=== PATIENT | male | born 1995 | race Caucasian/White ===

== ENCOUNTER 2019-12-07 17:35 | Emergency (ER) | payer OTHER ==
[~2019-12-07] VITALS: Ht 188 cm; Wt 104.5 kg
[2019-12-07] MEDS ORDERED: HYDROcodone/APAP 5/325MG 1 TAB TABLET PO ONE (18:45)
[2019-12-07] MEDS ORDERED: ORPHENADRINE CITRATE 60 MG/2 ML VIAL. IM ONE (18:45)
[2019-12-07 18:54] LABS: BILIRUBIN,URINE NEGATIVE (NEG); CLARITY,URINE CLEAR; COLOR,URINE YELLOW; NITRITE,URINE NEGATIVE (NEG); PH,URINE 7.5 (<5.0-8.0); PROTEIN,URINE NEGATIVE (NEG-TRACE); UROBILINOGEN,URINE 0.2 mg/dL (0.2 mg/dL)
[2019-12-07 18:59] LABS: BACTERIA,URINE 0 /HPF (0-FEW); RBC,URINE 0 /HPF (0-2); WBC,URINE 0 /HPF (0-4)
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
[2019-12-07 19:00] VITALS: BP 119/56
[2019-12-07 19:03] LABS: AMPHETAMINE/METHAMPHETAMINE NEG (NEG); BARBITURATES NEG (NEG); BENZODIAZEPINES NEG (NEG); CANNABINOIDS NEG (NEG); COCAINE NEG (NEG); METHADONE NEG (NEG); OPIATES NEG (NEG); PHENCYCLIDINE NEG (NEG)
[2019-12-07] MEDS ORDERED: HYDR-3164 PO (19:35)
[2019-12-07] MEDS ORDERED: ORPH100T PO (19:35)
--- NOTE | 2019-12-07 19:39 | RAD ---
Exam: Thoracic spine 2 views INDICATION: Pain TECHNIQUE: Frontal and lateral views of the thoracic spine Comparisons: None FINDINGS: Vertebral body heights and alignment are well-maintained. No significant spondylotic change identified within the thoracic spine. Visualized paraspinal soft tissues are unremarkable. IMPRESSION: Unremarkable thoracic spine radiographs. Electronically signed by: Isac Hernandez MD (12/07/2019 7:36 PM) [id number]
== END 2019-12-07 20:35 | disposition home or self-care (01) ==
LOC: ER 17:35
DX: S39.82XA Other specified injuries of lower back, initial encounter (principal); Y08.89XA Assault by other specified means, initial encounter; Y93.89 Activity, other specified; Y92.89 Other specified places as the place of occurrence of the external cause; Y99.8 Other external cause status
CPT/HCPCS: 72072; 80307; 81001; 96372; 99284; J2360